=== PATIENT | female | born 1970 | race African-American/Black ===

== ENCOUNTER 2016-12-31 19:06 | Emergency (ER) | payer BC ==
--- NOTE | ~2016-12-31 | EKG ---
PATIENT: LESA MANN UNIT #: [id number] Ventricular Rate: 46 BPM Atrial Rate: 46 BPM P-R Interval: 158 ms QRS Duration: 88 ms Q-T Interval: 456 ms QTC Calculation(Bezet): 399 ms P [place]: 38 degrees Calculated R [place]: -43 degrees Calculated T [place]: 54 degrees Diagnosis Line: Sinus bradycardia Diagnosis Line: Left axis deviation Diagnosis Line: T wave abnormality, consider anterior ischemia Diagnosis Line: Abnormal ECG Diagnosis Line: No previous ECGs available Diagnosis Line: Confirmed by MONICA BILLINGS MD ([id number]) on Diagnosis Line: 01/01/2017 1:32:25 PM INTERPRETING MD: MANUELITO BLANTON
[2016-12-31 23:01] LABS: POC - CKMB 1.6 ng/mL (0.0-7.9); POC - TROPONIN <0.05 ng/mL (<=0.05)
[2016-12-31 23:47] LABS: BUN/CREATININE RATIO 28.33; CALCIUM SERUM 9.3 mg/dL (8.4-10.2); CREATININE SERUM 0.6 mg/dL (0.6-1.4); GLOM FILT RATE Estimated 128.5 mL/min (>60); POTASSIUM 3.5 mmol/L (3.5-5.1)
== END 2017-01-01 00:40 | disposition home or self-care (01) ==
LOC: CED 19:06
PROVIDERS: Emergency Medicine
DX: F41.9 Anxiety disorder, unspecified (principal); Z88.5 Allergy status to narcotic agent
CPT/HCPCS: 36415; 80048; 82553; 84484; 93005; 99284